=== PATIENT | male | born 1970 | race Caucasian/White ===

== ENCOUNTER 2021-06-10 22:37 | Inpatient (IN) | payer MEDICARE, MEDICAID ==
[~2021-06-10] VITALS: Ht 193 cm; Wt 104.8 kg
[2021-06-10 23:57] LABS: HEMOGLOBIN 11.6 gm/dl (14.0-17.5); RED BLOOD COUNT 3.72 M/UL (4.20-5.50); WHITE BLOOD COUNT 10.4 K/UL (4.5-11.0)
[2021-06-11 00:24] LABS: BUN/CREATININE RATIO 22 (0-10)
[2021-06-11] MEDS ORDERED: BUPROPION HCL150 M1 PO (10:58)
[2021-06-11] MEDS ORDERED: METFORMIN HCL1000 MG PO (10:59)
[2021-06-11] MEDS ORDERED: MELATONIN10 M2 PO (11:00)
[2021-06-11] MEDS ORDERED: NEXIUM20 MG PO (11:00)
[2021-06-11] MEDS ORDERED: ONDANSETRON HCL4 MG PO (11:02)
--- NOTE | 2021-06-12 00:27 | NUR ---
REVIEWED PREVIOUS ASSESSMENT ON PATIENT. AGREE WITH ALL ORR. NO CHANGES TO PATIENT CONDITION DURING OR AFTER TRANSFER.
[2021-06-12 04:51] LABS: HEMOGLOBIN 11.7 gm/dl (14.0-17.5); RED BLOOD COUNT 3.77 M/UL (4.20-5.50); WHITE BLOOD COUNT 8.5 K/UL (4.5-11.0)
[2021-06-12 05:36] LABS: BUN/CREATININE RATIO 18 (0-10)
[2021-06-13 06:21] LABS: BUN/CREATININE RATIO 16 (0-10)
--- NOTE | 2021-06-13 20:06 | NUR ---
OR CAME TO [facility] FOR SX AT 1942. PT STABLE WITH NO S/S DISTRESS NOTED.
--- NOTE | 2021-06-13 21:54 | NUR ---
PT ARRIVED BACK FROM SURGERY STABLE WITH NO S/S COMPLICATIONS AT APPROX 2100
[2021-06-15 05:38] LABS: HEMOGLOBIN 10.7 gm/dl (14.0-17.5); RED BLOOD COUNT 3.46 M/UL (4.20-5.50); WHITE BLOOD COUNT 7.7 K/UL (4.5-11.0)
[2021-06-15 06:00] LABS: BUN/CREATININE RATIO 13 (0-10)
[2021-06-15] MEDS ORDERED: ZYVOX600 MG PO (09:22)
[2021-06-15] MEDS ORDERED: CEPHALEXIN500 MG PO (09:22)
== END 2021-06-15 16:15 | disposition home or self-care (01) | DRG 616 ==
LOC: ER1 22:37 → CDU 06-11 03:30 → M/S 06-11 03:30 → 3 EAST 06-11 15:08 → M/S 06-11 23:13
PROVIDERS: Internal Medicine; Physician Assistant; Podiatrist Foot & Ankle Surgery; ADMIT Emergency Medicine
PROC: 8E0ZXY6 Isolation (ICD-10-PCS; 2021-06-12)
PROC: 0Y6R0Z1 Detachment at Right 2nd Toe, High, Open Approach (ICD-10-PCS; principal; 2021-06-13 15:00)
DX: E11.69 Type 2 diabetes mellitus with other specified complication (principal); U07.1 COVID-19; M86.8X7 Other osteomyelitis, ankle and foot; E11.52 Type 2 diabetes mellitus with diabetic peripheral angiopathy with gangrene; I96 Gangrene, not elsewhere classified; E11.42 Type 2 diabetes mellitus with diabetic polyneuropathy; F10.20 Alcohol dependence, uncomplicated; Z88.0 Allergy status to penicillin; Z88.1 Allergy status to other antibiotic agents; Z83.3 Family history of diabetes mellitus; Z79.84 Long term (current) use of oral hypoglycemic drugs
CPT/HCPCS: 36415; 71045; 73630; 73718; 80048; 80053; 80202; 82962; 83540; 83550; 83605; 83735; 83880; 84100; 85025; 85027; 85610; 85652; 85730; 86140; 87040; 87070; 87205; 93926; 96365; 96366; 96367; 96372; 96376; 99285; J1100; J1170; J1650; J2185; J2250; J2405; J2704; J2795; J3010; J3370; J7070; J7120; U0002